=== PATIENT | female | born 1975 | race Two or more races ===

== ENCOUNTER 2016-03-29 06:50 | Day surgery (SDC) | payer OTHER ==
[2016-03-29] MEDS ORDERED: LIDOCAINE 1% 2 ML VIAL ID PRN (06:59)
[2016-03-29] MEDS ORDERED: LACTATED RINGERS 1,000 ML IV SCH ×3 (06:59→10:14)
[2016-03-29] MEDS ORDERED: IV START KIT ONE (07:00)
[2016-03-29] MEDS ORDERED: LIDOCAINE 2% (MULTI DOSE) 10 ML VIAL ONE (08:45)
[2016-03-29] MEDS ORDERED: PROPOFOL 20 ML IV ONE (08:45)
[2016-03-29] MEDS ORDERED: FENTANYL 100 MCG/2 ML VIAL ONE (08:47)
[2016-03-29] MEDS ORDERED: MIDAZOLAM HCL 1 MG/ML 2ML VIAL ONE (08:47)
[2016-03-29] MEDS ORDERED: MEPERIDINE 25 MG/ML SYRINGE IV PRN (09:21)
[2016-03-29] MEDS ORDERED: NALOXONE HCL 0.4 MG/ML VIAL IV PRN (09:21)
[2016-03-29] MEDS ORDERED: ATROPINE SULFATE 0.4 MG/1 ML VIAL IV PRN (09:21)
[2016-03-29] MEDS ORDERED: FENTANYL 100 MCG/2 ML VIAL IV PRN (09:21)
[2016-03-29] MEDS ORDERED: HYDROMORPHONE HCL 1 MG/ML SYRINGE IV PRN (09:21)
[2016-03-29] MEDS ORDERED: HYDRALAZINE HCL 20 MG/1 ML VIAL IV PRN (09:21)
[2016-03-29] MEDS ORDERED: LABETALOL HCL 5 MG/ML 20ML VIAL IV PRN (09:21)
[2016-03-29] MEDS ORDERED: PROMETHAZINE HCL 25 MG/ML VIAL IM PRN (09:21)
[2016-03-29] MEDS ORDERED: ONDANSETRON 4 MG/2ML 2 ML VIAL IV PRN ×2 (09:21→10:14)
[2016-03-29] MEDS ORDERED: DEXAMETHASONE SOD PHOS 4 MG/1 ML VIAL ONE (09:25)
[2016-03-29] MEDS ORDERED: KETOROLAC TROMETHAMINE 30 MG/ML 1 ML VIAL ONE ×2 (09:25→10:20)
[2016-03-29] MEDS ORDERED: ALBUTEROL SULFATE MDI 60 PUFFS/INHALER IH PRN (09:41)
[2016-03-29] MEDS ORDERED: OXYCODONE HCL 5 MG TABLET PO PRN (10:14)
--- NOTE | 2016-03-29 11:40 | OP ---
Samira Landers DATE OF OPERATION: 03/29/2016 SURGEON: Jordy Lira M.D. PREOPERATIVE DIAGNOSIS: Menorrhagia. POSTOPERATIVE DIAGNOSIS: Menorrhagia. OPERATION: Hysteroscopy and uterine wall biopsy. ANETHESIA: General. FINDINGS: The endometrial cavity appeared to be relatively normal although it was somewhat enlarged. The uterus sounded to 10 cm. There were some early thick fronds of endometrium, but no joao polyps or submucous leimyoma's were noted. TECHNICAL PROCEDURE: After induction of satisfactory general anesthesia the patient was placed in the supine lithotomy position and prepped and draped in the usual fashion. A weighted speculum was placed in the vagina and the cervix grasped with a single tooth tenaculum. The endocervix was dilated using progressive larger Narayan dilator 27-Russian. The hysteroscope was introduced and the above findings noted. Using the resectoscope fragments of endometrium were resected. Hemostasis was assured. The hysteroscope was then removed and the procedure terminated. The patient tolerated the procedure well and left the operating room awake and in good condition. There were no complications. Instrument, needle, and sponge counts were correct. Estimated blood loss was minimal. There was no blood replacement. Specimens removed were uterine wall biopsies. JOB: [id number]
[2016-03-29] MEDS ORDERED: OXYCODONE HCL 5 MG TABLET ONE (12:23)
--- NOTE | 2016-04-02 12:36 | SURGPATH ---
[facility] [address] [place] [id number] Patient Name: LILY MARTINEZ MR#: [id number] : 1975 Gender: F Specimen #: [id number] Collected: 03/29/2016 Received: 04/01/2016 Reported: 04/02/2016 Submitting Phys: CAT MACK Copy To Phys: PAYAM PE[facility] Clinical History / Pre-Operative Diagnosis: Menorrhagia Specimen Source / Surgical Procedure Performed: Uterine wall biopsy and endometrial curetting Interpretation: ENDOMETRIUM, CURETTAGE AND UTERINE WALL, BIOPSY: - SECRETORY ENDOMETRIUM - ONE FRAGMENT WITH FEATURES OF BENIGN ENDOMETRIAL POLYP Electronically Signed Out Tamiko Rubin M.D. Gross Description: The specimen is received in formalin labeled with the patient's name and "uterine wall biopsy and endometrial curettings". The specimen consists of a 1.5 x 1.5 x 0.6 cm aggregate of parra-brown rubbery-soft tissue fragments. Submitted in toto in one cassette. DAVEY Aguilar Microscopic Description: Sections show secretory endometrium with serrated glands containing luminal secretions, embedded within an edematous stroma. One area shows thick walled blood vessels with more fibrous stroma, consistent with a benign endometrial polyp. No malignancy, hyperplasia, or chronic endometritis is seen. The superficial myometrium is unremarkable. 1: 58165 N93.8
== END 2016-03-29 12:55 | disposition home or self-care (01) ==
LOC: SDC 06:50 → MERGE 06:50 → SDC 12:55
PROVIDERS: ATTEND Obstetrics & Gynecology
PROC: 0UDB8ZX Extraction of Endometrium, Via Natural or Artificial Opening Endoscopic, Diagnostic (ICD-10-PCS; principal; 2016-03-29)
DX: N92.0 Excessive and frequent menstruation with regular cycle (principal); J45.909 Unspecified asthma, uncomplicated; M35.00 Sjogren syndrome, unspecified; E66.3 Overweight; Z68.34 Body mass index [BMI] 34.0-34.9, adult; Z88.8 Allergy status to other drugs, medicaments and biological substances; Z87.891 Personal history of nicotine dependence
CPT/HCPCS: 58558; J3010; J1100; A9270; J1885 ×2; J2250; J2405 ×2; J7120; J2001

== ENCOUNTER 2016-07-12 10:23 | Day surgery (SDC) | payer OTHER ==
[~2016-07-12 10:23] MED LIST: ACETAMINOPHEN 325 MG TABLET PO PRN; ALBUTEROL SULFATE MDI 60 PUFFS/INHALER IH PRN; ATROPINE SULFATE 0.4 MG/1 ML VIAL IV PRN; BLISTEX LIPSTICK 1 EACH TP PRN; BUPIVACAINE 0.75% SPINAL AMPUL 2 ML ONE; CEFAZOLIN SODIUM 2 GRAM DUPLEX 2 G in Premix (D5W) 50 ml 1 EACH IV PRN; CEFAZOLIN SODIUM 2 GRAM PREMIX 100 ML IV ONE; DIPHENHYDRAMINE HCL 50 MG/1 ML VIAL IV PRN; DOCUSATE SODIUM 100 MG CAPSULE PO PRN; EPHEDRINE SULFATE 50 MG/ML 1ML VIAL IV PRN; IV START KIT ONE; KETOROLAC TROMETHAMINE 30 MG/ML 1 ML VIAL IV PRN; LABETALOL HCL 5 MG/ML 20ML VIAL IV PRN; LACTATED RINGERS 1,000 ML IV SCH; LIDOCAINE 1% 2 ML VIAL ID PRN; MAG HYDROX/AL HYDROX/SIMETH 30 ML UDCUP PO PRN; MAGNESIUM HYDROXIDE/AL HYDROX 30 ML UDCUP PO PRN; MENTHOL/CETYLPYRD 1 EACH LOZENGE PO PRN; MEPERIDINE 25 MG/ML SYRINGE IV PRN; METOCLOPRAMIDE HCL 5 MG/ML 2ML VIAL ONE; MIDAZOLAM HCL 5 MG/5 ML VIAL ONE; MORPHINE SULFATE (DURAMORPH) 1 MG/ML 10ML AMP ONE; MORPHINE SULFATE 2 MG/ML SYRINGE IV PRN; MORPHINE SULFATE 4 MG/ML SYRINGE IV PRN; NALOXONE HCL 0.4 MG/ML VIAL IV PRN; ONDANSETRON 4 MG/2ML 2 ML VIAL IV PRN; OXYCODONE/ACETAMINOPHEN 5/325 MG TABLET PO PRN; PROMETHAZINE HCL 25 MG/ML VIAL IM PRN; SPINAL PROCEDURAL TRAY 1 EACH ONE
[2016-07-12 10:42] VITALS: BMI 35.1
--- NOTE | 2016-07-12 10:58 | OP ---
Samira Landers DATE: 07/12/2016 SURGEON: Jordy Lira MD. [employer]IED [employer] SURGEON: Dr. Jo Ann Bowers PREOPERATIVE DIAGNOSES: Menorrhagia and dysmenorrhea. POSTOPERATIVE DIAGNOSES: Menorrhagia and dysmenorrhea. OPERATION: Vaginal hysterectomy. ANESTHESIA: Spinal. FINDINGS: Uterus appeared to be of normal size and shape. The ovaries and Fallopian tubes appeared normal. TECHNICAL PROCEDURE: After indication of satisfactory spinal anesthesia the patient was placed in the supine lithotomy position and prepped and draped in the usual fashion. The cul-de-sac was entered posteriorly using the Nolan scissors in the vaginal cuff and incised circumferentially at this level. The vesicouterine peritoneum was then identified and incised with Nolan scissors and a Friendship retractor placed anteriorly. The right uterosacral ligament was clamped with Nini clamps, divided, and suture ligated with 0 Vicryl. The same procedure was repeated on the left. The left cardinal ligament was clamped with a Nini clamp, divided, and suture ligated with 0 Vicryl. The same procedure was repeated on the right. The right uterine artery was clamped with a Nini clamp, divided, and suture ligated with 0 Vicryl. The same procedure was repeated on the left. The left round ligament was clamped with a Nini clamp, divided and suture ligated with 0 Vicryl. The same procedure was repeated on the right. The right uteroovarian ligament and Fallopian tube were then crossed clamped with a Nini clamp and divided. The same procedure was repeated on the left thus removing the uterus. When hemostasis in the pedicles was assured the peritoneum was closed with a purse string suture of 0 Vicryl. The vaginal cuff was then closed from side to side using interrupted figure of 8 suture of 0 Vicryl. The instruments were removed from the vagina. The bladder was drained with a straight catheter and noted to drain clear urine. The procedure was then terminated. The patient tolerated the procedure well and left the operating room awake and in good condition. There were no complications. Instrument, needle, and sponge counts were correct. Estimated blood loss was 100 mL. There was no blood replacement. Specimen removed was the uterus. JOB: [id number]
[2016-07-12] MEDS: ONDANSETRON 4 MG/2ML 2 ML VIAL IV PRN ×3 (10:59→19:54)
[2016-07-12] MEDS ORDERED: PUMP TUBING ONE (11:27)
[2016-07-12] MEDS: KETOROLAC TROMETHAMINE 30 MG/ML 1 ML VIAL IV SCH ×2 (11:30→17:47)
[2016-07-12] MEDS: D5 1/4NS with 20 mEq KCL 1,000 ML IV SCH ×2 (11:30→19:45)
[2016-07-12] MEDS: METOCLOPRAMIDE HCL 5 MG/ML 2ML VIAL IV PRN ×2 (14:02→22:18)
[2016-07-12] MEDS ORDERED: MOMETASONE IH SCH (21:00)
[2016-07-12] MEDS ORDERED: [UNRECOGNIZED DRUG - OTHER] IH SCH (21:00)
[2016-07-12] MEDS ORDERED: FORMOTEROL IH SCH (21:00)
[2016-07-12] MEDS ORDERED: OMEPRAZOLE 20 MG CAPSULE.DR PO SCH (21:00)
[2016-07-12] MEDS ORDERED: AMITRIPTYLINE HCL 10 MG TABLET PO SCH (21:00)
[2016-07-12] MEDS: PANTOPRAZOLE 40 MG TABLET DR PO SCH (23:05)
[2016-07-13] MEDS: KETOROLAC TROMETHAMINE 30 MG/ML 1 ML VIAL IV SCH ×2 (03:12→06:56)
[2016-07-13] MEDS: D5 1/4NS with 20 mEq KCL 1,000 ML IV SCH (03:16)
[2016-07-13 06:27] LABS: HEMATOCRIT 30.8 % (37.0-47.0); HEMOGLOBIN 10.1 gm/l (12.0-16.0)
[2016-07-13 07:46] VITALS: BP 91/65
[2016-07-13] MEDS ORDERED: OXYCODONE/ACETAMINOPHEN 5/325 MG TABLET PO PRN (08:26)
[2016-07-13] MEDS ORDERED: IBUPROFEN 800 MG TABLET PO PRN (08:26)
--- NOTE | 2016-07-13 08:35 | PDOC36 ---
Provider Note Subject: Urinary retention Note: S: Pt has had some breakfast and is feeling well. She is starting to have some pain. Meds discussed. She was relieved by placement of mancilla last night but agrees with removal this morning. O: Exam is reassuring, good color in face. Urine light yellow, clear, adq volume Abd soft, +BS. Minimal vaginal bleeding. Imp: Pt seems to be doing well. Urinary retention hopefully has resolved. Plan: DC mancilla, monitor output then check post void residual. I still expect dc today.
[2016-07-13] MEDS: PANTOPRAZOLE 40 MG TABLET DR PO SCH (09:00)
[2016-07-13] MEDS ORDERED: HYDROMORPHONE HCL 1 MG/ML SYRINGE IV PRN (09:25)
--- NOTE | 2016-07-13 10:42 | PDOC5 ---
Hospital Course: ADMIT DATE: DISCHARGE DATE: 07/13/16 ADMISSION DIAGNOSES: Dysmenorrhea, menorrhagia PROCEDURES: Vaginal hysterectomy HISTORY OF PRESENT ILLNESS: 41 year old para 5, presenting with plan for Vag hyst. HOSPITAL COURSE: The patient had an uncomplicated surgery with EBL of 100cc. During the evening she had some urinary retention, relieved by placement of a mancilla. This was removed this morning and pt is voiding well. By day of discharge the patient is ambulating, eating, voiding, and passing flatus without difficulty. Pain is controlled with ibuprofen and percocet. - Objective General: Afebrile Lungs: Clear to Auscultation Bilaterally Cardiovascular: Regular Rate and Rhythm Abdomen: Soft, Non-Distended, Normal Bowel Sounds Genitourinary: Normal Female Genitalia Skin: Normal Color, Warm Neurological: Alert, Normal Gait, Normal Speech Psych/Mental Status: Normal Affect - Discharge Diagnosis (1) Hypermenorrhea Status: AcuteAssessment/Plan: Vaginal hysterectomy without complication. - Discharge Plan Condition: Good Disposition: Home Prescriptions: Ibuprofen [IBUPROFEN 800 MG TABLET (SHF)] 800 mg PO TID PRN #100 PRN Reason: Pain Oxycodone HCl/Acetaminophen [PERCOCET 5/325 MG TABLET (SHF)] 1 - 2 tab PO Q4H PRN #60 PRN Reason: Pain (Moderate) Follow-Up: Jordy Lira MD [Staff Physician] - In 2 weeks
--- NOTE | 2016-07-16 13:01 | SURGPATH ---
[facility] [address] [place] [id number] Patient Name: LILY MARTINEZ MR#: [id number] : 1975 Gender: F Specimen #: [id number] Collected: 07/12/2016 Received: 07/15/2016 Reported: 07/16/2016 Submitting Phys: CAT MACK Copy To Phys: PAYAM [facility] Clinical History / Pre-Operative Diagnosis: Dysmenorrhea, menorrhagia Specimen Source / Surgical Procedure Performed: Uterus with cervix Interpretation: UTERUS AND CERVIX, HYSTERECTOMY: - CERVIX: NO DIAGNOSTIC ABNORMALITIES - ENDOMETRIUM: INACTIVE PHASE - MYOMETRIUM: SUPERFICIAL ADENOMYOSIS : Electronically Signed Out Tamiko Rubin M.D. Gross Description: The specimen is received in formalin labeled with the patient's name and "uterus with cervix". The specimen consists of a 100 g, 9.5 x 5.5 x 4.2 cm uterus with attached cervix. The 3 cm cervix has patent os. The uterine serosa is parra and smooth. The soft brown finely granular endometrium is 0.1 cm. The parra rubbery myometrium is faintly trabecular. Upsetter Setter Up tissue is submitted. A. posterior cervix B. anterior cervix C.-D. posterior uterus E.-F. anterior uterus DAVEY Aguilar Microscopic Description: Sections of the cervix show no evidence of dysplasia. The endometrial glands are inactive with focal tubal metaplasia. Adenomyosis is present. No hyperplasia or carcinoma seen. 1: 59323 N80.0
== END 2016-07-13 12:25 | disposition home or self-care (01) ==
LOC: SDC 10:23 → MS 10:40 → SDC 07-13 12:25
PROVIDERS: ATTEND Obstetrics & Gynecology
PROC: 0UT97ZZ Resection of Uterus, Via Natural or Artificial Opening (ICD-10-PCS; principal; 2016-07-12)
PROC: 0UTC7ZZ Resection of Cervix, Via Natural or Artificial Opening (ICD-10-PCS; 2016-07-12)
DX: N92.0 Excessive and frequent menstruation with regular cycle (principal); N94.6 Dysmenorrhea, unspecified; R33.8 Other retention of urine
CPT/HCPCS: 85014; 85018; 36415; 58260; J2274; A9270 ×3; J2765 ×3; J1885 ×4; J2250 ×2; J2405 ×3; J7120; J0690